=== PATIENT | female | born 1985 | race Caucasian/White ===

== ENCOUNTER 2024-12-12 01:31 | Emergency (ER) | payer MEDICAID, SELFPAY ==
--- NOTE | ~2024-12-12 | XR_ITS ---
CLINICAL HISTORY: trauma Right knee, 2 views COMPARISON: None provided FINDINGS: No acute fracture. No dislocation. Anterior infrapatellar soft tissue injury with scattered soft tissue emphysema and possible 5 x 3 mm hyperdense foreign body anterior to the proximal tibia. IMPRESSION: No acute fracture. Anterior infrapatellar soft tissue injury with possible foreign body. This document has been electronically signed by: Donaldo Donis MD on 12/12/2024 03:19:31
--- NOTE | ~2024-12-12 | CT_ITS ---
CLINICAL HISTORY: trauma CT Head WO Contrast COMPARISON: None provided FINDINGS: No acute intracranial hemorrhage. No evidence of acute infarction. No mass-effect or midline shift. No hydrocephalus. Cysts or polyps in the right maxillary sinus in the sphenoid sinus. The mastoid air cells are clear. The visible orbits are normal. No acute fracture. Unremarkable soft tissues. IMPRESSION: No acute intracranial findings. This document has been electronically signed by: Donaldo Donis MD on 12/12/2024 04:22:26
--- NOTE | ~2024-12-12 | CT_ITS ---
CLINICAL HISTORY: trauma CT Cervical Spine WO Contrast COMPARISON: None provided FINDINGS: No acute fracture or malalignment. Mild degenerative changes in the spine. Soft tissues are normal. Lung apices are clear. IMPRESSION: No acute findings. This document has been electronically signed by: Donaldo Donis MD on 12/12/2024 04:14:35
[2024-12-12 01:35] VITALS: BP 136/96; PULSE 88; O2SAT 100; BMI 26.3
[2024-12-12 01:43] VITALS: BP 135/60; PULSE 81; RESP 16; TEMP 36.7; O2SAT 97
[2024-12-12 02:36] LABS: Hematocrit 40.1 % (37.0-47.0); Hemoglobin 13.6 g/dl (12.0-16.0); Imm Gran Abs Auto 0.04 X10*3/uL (0.00-0.03); Imm Gran Pct Auto 0.4 % (0.0-0.4); Lymphocytes Absolute Auto 1.6 X10*3/uL (1.2-4.9); MANUAL DIFF FLAG NO; Mean Corpuscular HGB Conc 33.9 g/dl (31.0-35.0); Mean Corpuscular Hemoglobin 29.1 pg (27.0-33.0); Mean Corpuscular Volume 85.9 fL (80.0-98.0); NRBC Abs Auto 0.000 X10*3/uL (0.0-0.012); NRBC Pct Auto 0.0 /100WBC (0.0-0.2); Platelet Count 260 X10*3/uL (160-400); Red Blood Count 4.67 X10*6/uL (4.20-5.50); White Blood Count 11.4 X10*3/uL (4.8-10.8)
--- NOTE | 2024-12-12 02:42 | ED.GENADULT ---
HPI - General Adult General Chief complaint: Fall Stated complaint: FALL Time Seen by Provider: 12/12/24 01:56 Source: EMS Limitations: other (Intoxicated) History of Present Illness ED Provider: Aminah Kapadia PA-C HPI narrative: 39-year-old female with a history of housing and security, polysubstance abuse, presents intoxicated. Patient states she fell earlier this evening that she ?tripped on rocks?. She states she did strike her head, however there was no loss consciousness, the patient does not use blood thinners. History limited as the patient is not cooperative, she is demanding pain medication, or she will not partake in the CT scans. Related Data Allergies Allergy/AdvReac Type Severity Reaction Status Date / Time No Known Allergies (No Known Allergy Verified 12/12/24 01:52 Allergies*) Review of Systems Review of Systems: Unable to obtain Yes all other systems are reviewed and are negative [facility] Past Medical History Attestation statement: The following information was validated with the patient. Social History Social History Smoked in Last 30 Days: Yes Use of substances other than those prescribed or required for medical reasons: Yes Substance Use Type: Crack/Cocaine and Heroin Advance Directives: No Advance Directives Information Provided: Yes Do you have a plan to hurt others: No Plan Physical Exam ED Vital Signs: Vital Signs - 24 hr 12/12/24 01:43 12/12/24 06:23 12/12/24 08:00 Temperature 98.1 F 98.4 F 97.7 F Pulse Rate 81 92 89 Respiratory Rate 16 18 16 Blood Pressure 135/60 112/75 139/90 H Pulse Oximetry 97 98 99 Oxygen Delivery Method Room Air Room Air Room Air 12/12/24 08:58 Temperature 97.7 F Pulse Rate 89 Respiratory Rate 16 Blood Pressure 139/90 H Pulse Oximetry 99 Oxygen Delivery Method Room Air BMI result Body Mass Index 26.3 Const Other: Dozing in bed, partially falling asleep while I am trying to obtain history appears intoxicated, abrasions noted to left lateral forehead and cheek not bleeding Orientation/consciousness: patient oriented x3 Eyes Other: Pinpoint pupils Resp Effort & Inspection: normal respiratory effort Cardio Other: Normal peripheral perfusion Skin Other: Abrasion noted over right knee, no longer bleeding Neuro General: patient oriented x3, gait normal, no focal motor deficits and CN's II-XI intact bilaterally Psych Other: Hostile, belligerent, noncooperative Course Reevaluation(s) Reevaluation #1: I had expressed to the patient that I would not be giving her any opiate pain medication, I offered her Tylenol, I explained to the patient I was concerned that she is intoxicated, that she can barely stay awake while I am trying to speak with the. She states she wants to leave, I am preparing AMA forms Reevaluation #2: Patient states she is willing to stay, she will have the CT scans Reevaluation #3: Time: 08:42 Date: 12/12/24 Provider: Maxx Casper MD I assumed care of this patient from my colleague, Dr. Quiñonez at 07:00 hours. Patient told me that she has been using heroin over the last several days and she is in a methadone program. She has not been to the methadone clinic in the at least 3 days. The patient denied being suicidal or homicidal. She states she is feeling better and would just like to go home and get to the methadone clinic. The patient was discharged home with printed and verbal instructions. Patient was given a safe injection kit and intranasal Narcan dose pack. Medications Administered Discontinued Medications Generic Name Dose Route Start Last Admin Trade Name Freq PRN Reason Stop Dose Admin Naloxone HCl 8 mg 12/12/24 08:48 12/12/24 09:02 Naloxone Hcl Nasal Take Home 4 Mg [place] NOSTRILALT 12/12/24 08:49 8 mg ONCE ONE Administration Medical Decision Making Medical Decision Making MDM Narrative: 39-year-old female with a history of housing and security, polysubstance abuse, presents intoxicated. Patient states she fell earlier this evening that she ?tripped on rocks?. She states she did strike her head, however there was no loss consciousness, the patient does not use blood thinners. History limited as the patient is not cooperative, she is demanding pain medication, or she will not partake in the CT scans. Problem: Housing and security, polysubstance abuse History: Limited per patient primarily through EMS I have considered the following differential diagnoses: Intracranial hemorrhage, cervical spine injury, fracture, dislocation, laceration, abrasion Plan: The patient is not a reliable historian and she has evidence of head trauma, we will be scanning her head and neck. We will be imaging the right knee as well. She does indicate her tetanus is up-to-date. Attempting to obtain screening labs. As previously stated, the patient is actively asking for pain medication, she is also asking for her methadone, she states she has not had it in 3 days, she states she is ?withdrawing?. She also admits to using heroin and cocaine 5 hours before coming to the emergency room. She has no active GI symptoms at this time, no evidence of objective opiate withdrawal, I am not medicating her with methadone, she is clinically intoxicated. I have independently reviewed the following tests: Labs: Slight leukocytosis, not anemic, chemistries hemolyzed A CT brain:FINDINGS: No acute intracranial hemorrhage. No evidence of acute infarction. No mass-effect or midline shift. No hydrocephalus. Cysts or polyps in the right maxillary sinus in the sphenoid sinus. The mastoid air cells are clear. The visible orbits are normal. No acute fracture. Unremarkable soft tissues. IMPRESSION: No acute intracranial findings. CT cervical spine:FINDINGS: No acute fracture or malalignment. Mild degenerative changes in the spine. Soft tissues are normal. Lung apices are clear. IMPRESSION: No acute findings. xray right knee:FINDINGS: No acute fracture. No dislocation. Anterior infrapatellar soft tissue injury with scattered soft tissue emphysema and possible 5 x 3 mm hyperdense foreign body anterior to the proximal tibia. IMPRESSION: No acute fracture. Anterior infrapatellar soft tissue injury with possible foreign body. Lab Data 12/12/24 02:18 Labs: Lab Results 12/12/24 Range/Units 02:18 WBC 11.4 H (4.8-10.8) X10*3/uL RBC 4.67 (4.20-5.50) X10*6/uL Hgb 13.6 (12.0-16.0) g/dl Hct 40.1 (37.0-47.0) % MCV 85.9 (80.0-98.0) fL MCH 29.1 (27.0-33.0) pg MCHC 33.9 (31.0-35.0) g/dl RDW 13.0 (11.0-16.0) % Plt Count 260 (160-400) X10*3/uL MPV 10.2 (9.4-12.3) fL Immature Gran % (Auto) 0.4 (0.0-0.4) % Neut % (Auto) 78.0 H (45-73) % Lymph % (Auto) 14.1 L (20-40) % [place] % (Auto) 7.0 (2-11) % Eos % (Auto) 0.1 (0-4) % Baso % (Auto) 0.4 (0-2) % Lymph # (Auto) 1.6 (1.2-4.9) X10*3/uL [place] # (Auto) 0.8 (0.1-1.2) X10*3/uL Eos # (Auto) 0.0 (0.0-0.4) X10*3/uL Baso # (Auto) 0.0 (0.0-0.2) X10*3/uL Abs Immat Gran (auto) 0.04 H (0.00-0.03) X10*3/uL Absolute Neuts (auto) 8.9 H (2.0-8.3) x10*3/uL Absolute Nucleated RBC 0.000 (0.0-0.012) X10*3/uL Nucleated RBC % (auto) 0.0 (0.0-0.2) /100WBC Sodium Cancelled Potassium Cancelled Chloride Cancelled Carbon Dioxide Cancelled Anion Gap Cancelled BUN Cancelled Creatinine Cancelled Estim Creat Clear Calc Cancelled Estimated GFR Cancelled Random Glucose Cancelled Calcium Cancelled Magnesium Cancelled Total Bilirubin Cancelled AST Cancelled ALT Cancelled Alkaline Phosphatase Cancelled Total Protein Cancelled Albumin Cancelled Beta HCG, Quant Cancelled Ethyl Alcohol Cancelled Discharge Plan Discharge Clinical Impression: Heroin use, Methadone maintenance therapy patient Knee pain, right Qualifiers: Chronicity: acute Qualified Code(s): M25.561 - Pain in right knee Contusion of face Qualifiers: Encounter type: initial encounter Qualified Code(s): S00.83XA - Contusion of other part of head, initial encounter Fall Qualifiers: Encounter type: initial encounter Qualified Code(s): W19.XXXA - Unspecified fall, initial encounter Patient Disposition: Home, Self-Care Instructions: Facial Contusion (ED) Additional Instructions: CT scan of your brain and cervical spine were normal. The x-ray of the knee was normal as well. You sustained contusions and abrasions. Please follow up with your methadone maintenance program today to get dosed for your methadone. Continue taking medications as prescribed by your providers. Follow-up with your doctor in 2 days. Please return to the emergency department if your symptoms get worse or if you develop any symptoms that are concerning to you. Opiate use disorder You were seen in our Emergency Department today for a fall in you did report that you have been using heroin and have missed your methadone dose for the past 3 days. Please follow up your methadone maintenance program. We also have clinic that may able to help you. Please see the information below. You were not seen for an overdose , but you are being discharged home with intranasal Narcan. If you are going to continue to use heroin, you should make sure that there is a sober person with you that is not using drugs and that this person can administer intranasal Narcan in the event that you stop breathing. [facility] (M-F 9am-5p) [address], [address] [phone] You may have been provided with safer injection?items, please take time to take care of YOU and your health. Use new supplies whenever possible to lessen the chances of infections and other illnesses.? ?If you need more supplies, please go [facility],? [address] [place] [address] OR you can call or text to coordinate delivery of safer supplies. You were also provided a list of several treatment providers in the area.? If you experience any worsening symptoms you cannot control please return to the ED or call 911. Please follow up at your next appointment. Things to look out for are fevers, chest pain, shortness of breath, severe pain, dizziness, fainting or any other concerns. Interventions: ED Discharge Assessment Last Done: 12/12/24 08:58 Discharge Date/Time: 12/12/24 09:11 Print Language: Macedonian
--- NOTE | 2024-12-12 02:48 | PC.NURSE ---
pt initially refused to have CT scan done reporting she is in too much pain however upon leaving the room patient is dozing off. difficult to arouse awakens after yelling name multiple times. ANKUR Lucero to bedside and pt decided to leave AMA. registration entered room to register pt and she stated she no longer wants to leave and will get scans.
--- OUTSIDE RECORDS SUMMARY | 2024-12-12 03:09 | XMS_ITS | Clinical Summary ---
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 Role Phone Unavailable Primary Care Provider Unavailabl e Social History Tobacco Use Types Packs/Day Years Used Date Smoking Tobacco: Never Assessed Comments Unknown Sex and Gender Information Value Date Recorded Sex Assigned at Not on file Legal Sex Female 10:16 AM EDT Gender Identity Not on file Sexual Orientation Not on file Plan of Treatment Health Maintenance Due Date Last Done Comments Hepatitis B Vaccine (1 of 3 - 19+ 3-dose series) 2002 Influenza Vaccine (#1) 2024 Pneumococcal Vaccine: Peds ( 0 to 5 Years) and At-Risk Patients (6 to 49 Years) Aged Out No longer eligible b ased on patient's age to complete this topic Insurance Medicaid [place] Medicaid [place]
--- OUTSIDE RECORDS SUMMARY | 2024-12-12 03:09 | XMS_ITS ---
Author Name [facility] Organization Unknown Encounters Encounter Type Encounter Reason Primary Diagnosis Location Date Ambulatory [facility] 11/26/2024 Care Team Organization Name Specialty Phone Email Start Date End Da [facility] 12/02
[2024-12-12 06:23] VITALS: BP 112/75; PULSE 92; RESP 18; TEMP 36.9; O2SAT 98
--- NOTE | 2024-12-12 07:07 | PC.NURSE ---
pt resting comfortably 3a-7a, breathing even and unlabored. no apparent distress noted. call mahoney w/in reach
[2024-12-12 08:00] VITALS: BP 139/90; PULSE 89; RESP 16; TEMP 36.5; O2SAT 99
[2024-12-12 08:58] VITALS: BP 139/90; PULSE 89; RESP 16; TEMP 36.5; O2SAT 99
[2024-12-12] MEDS: Naloxone HCl Nasal TAKE HOME 4 MG SPRAY 8 MG NOSTRILALT (09:02)
== END 2024-12-12 09:11 | disposition home or self-care (01) ==
PROVIDERS: Physician Assistant Medical; Emergency Provider Emergency Medicine Emergency Medical Services
DX: S00.83XA Contusion of other part of head, initial encounter (principal); F11.10 Opioid abuse, uncomplicated; F14.10 Cocaine abuse, uncomplicated; R51.9 Headache, unspecified; M25.561 Pain in right knee; M54.2 Cervicalgia; F10.129 Alcohol abuse with intoxication, unspecified; Y90.9 Presence of alcohol in blood, level not specified; X50.1XXA Overexertion from prolonged static or awkward postures, initial encounter; Y93.9 Activity, unspecified; Y92.9 Unspecified place or not applicable; Y99.8 Other external cause status
CPT/HCPCS: 36415; 70450; 72125; 73560; 85025; 99284

== ENCOUNTER → 2024-12-12 02:00 | Outpatient (BNV) | payer MEDICAID, SELFPAY | PROVIDERS: Emergency Provider Emergency Medicine; Visit Provider Radiology Diagnostic Radiology | DX: M47.892 Other spondylosis, cervical region (principal); S09.90XA Unspecified injury of head, initial encounter; S81.021A Laceration with foreign body, right knee, initial encounter | CPT/HCPCS: 70450; 72125; 73560 ==